=== PATIENT | male | born 1985 ===

== ENCOUNTER 2018-12-06 19:46 | Emergency (ER) | payer SELFPAY ==
[~2018-12-06] VITALS: Ht 182.9 cm; Wt 86.2 kg
[2018-12-06 20:01] VITALS: BP_SYST 169
[2018-12-06] MEDS ORDERED: GENTAMICIN SULFATE 0.3% OPHT. 5 ML DROPS OP ONE ×2 (20:15→20:19)
[2018-12-06 20:34] VITALS: BP_SYST 169
== END 2018-12-06 20:34 ==
LOC: SED 19:46
DX: H10.9 Unspecified conjunctivitis (principal); R03.0 Elevated blood-pressure reading, without diagnosis of hypertension
CPT/HCPCS: 99283